=== PATIENT | female | born 1950 | race African-American/Black ===

== ENCOUNTER 2023-11-19 19:58 | Emergency (ER) | payer OTHER ==
[~2023-11-19] VITALS: Ht 152.4 cm; Wt 50.0 kg
[2023-11-19 20:03] VITALS: O2SAT 96
[2023-11-19 20:42] LABS: BASOPHILS % 0.5 % (0.0-2.0); EOSINOPHILS % 2.2 % (0.0-5.0); HEMOGLOBIN. 10.1 g/dL (12.0-16.0); LYMPHOCYTES % 34.4 % (20.0-50.0); MEAN CORPUSCULAR HEMOGLOBIN 27.3 pg (28.0-32.0); MEAN CORPUSCULAR HGB CONC 31.4 g/dL (31.0-37.0); MEAN CORPUSCULAR VOLUME 86.8 fL (81.0-99.0); MEAN PLATELET VOLUME 7.2 fl (7.4-10.4); MONOCYTES % 9.7 % (2.0-8.0); NEUTROPHILS % 53.2 % (40.0-76.0); PLATELET 324 x1000/uL (130-400); RED BLOOD CELL COUNT 3.69 mill/uL (4.2-5.4); WHITE BLOOD COUNT 6.8 x1000/uL (4.5-11.0)
[2023-11-19 20:48] LABS: CHLORIDE 107 mEq/L (98-107); POTASSIUM 4.3 mEq/L (3.5-5.1); SODIUM 138 mEq/L (136-145)
[2023-11-19 20:49] LABS: CALCIUM 9.3 mg/dL (8.7-10.4); CARBON DIOXIDE 27 mEq/L (21-32)
[2023-11-19 20:53] LABS: INR 0.9; PROTHROMBIN TIME 10.5 sec (9.6-11.0)
[2023-11-19 20:54] LABS: CREATININE 1.2 mg/dL (0.6-1.0); GLUCOSE 104 mg/dL (70-105); TROPONIN I HIGH SENSITIVITY 5 ng/L (3.0-34); UREA NITROGEN BLOOD 14 mg/dL (9-23)
[2023-11-19 20:56] LABS: ALANINE AMINOTRANSFERASE 9 IU/L (10-49); ASPARTATE AMINOTRANSFERASE 9 IU/L (<34); BILIRUBIN TOTAL 0.3 mg/dL (0.1-1.0); PROTEIN TOTAL 6.7 g/dL (6.0-8.3)
[2023-11-19] MEDS: SODIUM CHLORIDE 0.9% 1,000 ML IV ONE (21:25)
[2023-11-19] MEDS: ASPIRIN 81MG TABLET PO ONE (21:51)
[2023-11-19] MEDS: IOHEXOL-350 100 ML BOTTLE ONE (23:31)
[2023-11-20 00:25] VITALS: BP 149/95; PULSE 57; RESP 18; TEMP 97.1; O2SAT 98
== END 2023-11-20 00:36 | disposition left against medical advice (07) ==
LOC: ER 19:58 → EDBEDREQ 23:53 → ER 11-20 00:36
DX: R29.810 Facial weakness (principal); R53.1 Weakness; G45.9 Transient cerebral ischemic attack, unspecified; F03.90 Unspecified dementia, unspecified severity, without behavioral disturbance, psychotic disturbance, mood disturbance, and anxiety; Z86.73 Personal history of transient ischemic attack (TIA), and cerebral infarction without residual deficits
CPT/HCPCS: 99291; 70496; 96360; 96361; 71045; 80053; 82962; 85025; 85610; 85730; 86850; 86900; 86901; 84484; 36415; 70498; 93005; 70450; Q9967; J7030